=== PATIENT | female | born 1955 ===

== ENCOUNTER 2021-09-12 00:06 | Emergency (ER) | payer OTHER ==
--- OUTSIDE RECORDS SUMMARY | 2021-09-12 00:09 | XMS REPORT | Continuity of Care Document ---
:1955 Author Organization [facility] t Address [address] [place] [address] [address] [place] [address] Care Team Providers Name Role Phone АННА Attending Clinician Unavailable Kaushik CURRAN Attending Clinician Miah MORENO Attending Clinician Payers Payer Name Policy Type Policy Number Effective Date Expiration Date S delmi [id number] 2017 IN-AREA POS - BCBS 00:00:00 MEDICARE PART A \T\ [id number] 2018 B - MEDICARE 00:00:00 CHOICE/CHOICE [id number] 2015 PLUS/OPTIONS PPO - 00:00:00 [facility] Problems Condition Condition Condition Status Onset Resolution Last Treating Co mments Source Name Details Category Date Date Treatment Clinician Date Hypertensi Hypertensi Disease Active [facility] on on 08-10 College 00:00: of 00 Medicin e 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 Social History Social Habit Start Date Stop Date Quantity Comments Source Alcohol [facility] llege of Medicine Cigarettes smoked 2019-04-11 2019-04-11 [facility] (pack per 00:00:00 00:00:00 Medicin e day) - Reported Smoking Status Start Date Stop Date Source Current every day smoker 2019-04-11 00:00:00 [facility] Medications Ordered Filled Start Stop Current Ordering Indication Dosage Frequency Signature Comments Components Source Medication Medication Date Date Medication? Clinician (SIG) Name Name benazepril- 2018-06 Yes 1{tbl} Take 1 Tab Osvaldo hydrochlort 0-18 by mouth [place] hiazide 16:38: daily. of (LOTENSIN 44 Medicin HCT) e 10-12.5 MG per tablet sertraline 2018-06 Yes 50mg Take 50 mg [facility] (ZOLOFT) 50 0-18 by mouth [facility] MG tablet 16:38: daily. of 44 Medicin e busPIRone 2018-06 Yes 15mg Take 15 mg [facility] (BUSPAR) 15 0-18 by mouth 3 Co llege MG tablet 16:38: times of 44 daily. Medicin e omeprazole 2018-06 Yes 20mg Take 20 mg [facility] (PRILOSEC) 0-18 by mouth Colle ge 20 MG 16:38: daily. of capsule 44 Medicin e Potassium 2018-06 Yes Take by [facility] 99 MG TABS 0-18 mouth. [place] 16:38: of 44 Medicin e aspirin 81 2018-06 Yes 81mg Take 81 mg [facility] MG tablet 0-18 by mouth Colleg e 16:38: daily. of 44 Medicin e Niacin CR 2018-06 Yes Take by [facility] 1000 MG 0-18 mouth. [place] TBCR 16:38: of 44 Medicin e Multiple 2018-06 Yes Take by [facility] Vitamins-Mi 0-18 [facility]. [facility] 16:38: of (MULTIVITAM 44 Medicin IN ADULT) e TABS benazepril- Yes 1{tbl} Take 1 Tab [facility] hydrochlort 9-27 by mouth [place] hiazide 14:00: daily. of (LOTENSIN 46 Medicin HCT) e 10-12.5 MG per tablet sertraline Yes 50mg Take 50 mg [facility] (ZOLOFT) 50 9-27 by mouth [place] [facility] MG tablet 14:00: daily. of 46 Medicin e busPIRone Yes 15mg Take 15 mg [facility] (BUSPAR) 15 9-27 by mouth 3 Co llege MG tablet 14:00: times of 46 daily. Medicin e omeprazole Yes 20mg Take 20 mg [facility] (PRILOSEC) 9-27 by mouth [facility] 20 MG 14:00: daily. of capsule 46 Medicin e Atorvastati 2018- No Take by Neo sykes n Calcium 03-21 mouth. College (LIPITOR 14:00: 00:00 of OR) 04 :00 Medicin e PREVIDENT Yes USE [facility] 5000 02-26 DIRECTED College BOOSTER 00:00: ONCE D - of PLUS 1.1 % 00 BID Medicin PSTE e PREVIDENT Yes USE [facility] 5000 02-26 DIRECTED College BOOSTER 00:00: ONCE D - of PLUS 1.1 % 00 BID Medicin PSTE e lisinopril Yes TK 1 T PO [facility] (PRINIVIL, 02-25 QD [place] ZESTRIL) 10 00:00: of MG tablet 00 Medicin e lisinopril Yes TK 1 T PO [facility] (PRINIVIL, 02-25 QD [place] ZESTRIL) 10 00:00: of MG tablet 00 Medicin e Procedures This patient has no known procedures. Plan of Care Planned Activity Planned Date Details Comments Source Future Scheduled COLON CANCER [facility] Test SCREENING: of Medicine COLONOSCOPY [code = COLON CANCER SCREENING: COLONOSCOPY] Future Scheduled MAMMOGRAM ANNUAL [facility] Test [code = MAMMOGRAM of Medicin e ANNUAL] Future Scheduled MEDICARE AWV [code = [facility] Test MEDICARE AWV] of Medicine Future Scheduled TETANUS SHOT (ADULT) [facility]ermyn mazin [place] Test [code = TETANUS SHOT of Medi cine (ADULT)] Future Scheduled HEPATITIS C SCREENING [facility] Test [code = HEPATITIS C of Medic ine SCREENING] Future Scheduled FALL SCREEN [code = [facility] or [place] Test FALL SCREEN] of Medicine Future Scheduled OSTEOPOROSIS [facility] Test SCREENING [code = of Medicin e OSTEOPOROSIS SCREENING] Future Scheduled PNEUMOVAX >=65 [facility] Co llege Test (PPSV23) [code = of Medicine PNEUMOVAX >=65 (PPSV23)] Future Scheduled PREVNAR >= 65 (PCV13) [facility] College Test [code = PREVNAR >= 65 of Med icine (PCV13)] Future Scheduled FLU VACCINE > 6 [facility] C ollege Test MONTHS [code = FLU of Medici ne VACCINE > 6 MONTHS] Future Scheduled FL DESTRUCTION BENIGN Ordered: [facility] Test LESIONS UP TO 04/11/2019 of Medicine 14(45804) [code = 83407] Future Scheduled COLON CANCER [facility] Test SCREENING: of Medicine COLONOSCOPY [code = COLON CANCER SCREENING: COLONOSCOPY] Future Scheduled MAMMOGRAM ANNUAL [facility] Test [code = MAMMOGRAM of Medicin e ANNUAL] Future Scheduled MEDICARE AWV [code = [facility] maz[facility] [place] Test MEDICARE AWV] of Medicine Future Scheduled TETANUS SHOT (ADULT) [facility] mazin [place] Test [code = TETANUS SHOT of Medi cine (ADULT)] Future Scheduled HEPATITIS C SCREENING [facility] Test [code = HEPATITIS C of Medic ine SCREENING] Future Scheduled FALL SCREEN [code = [facility] [place] Test FALL SCREEN] of Medicine Future Scheduled OSTEOPOROSIS [facility] Test SCREENING [code = of Medicin e OSTEOPOROSIS SCREENING] Future Scheduled PNEUMOVAX >=65 [facility] Co llege Test (PPSV23) [code = of Medicine PNEUMOVAX >=65 (PPSV23)] Future Scheduled PREVNAR >= 65 (PCV13) [facility] Test [code = PREVNAR >= 65 of Med icine (PCV13)] Future Scheduled FLU VACCINE > 6 [facility] C ollege Test MONTHS [code = FLU of Medici ne VACCINE > 6 MONTHS] Encounters Start End Encounter Admission Attending Care Care Encounter Source Date/Time Date/Time Type Type Clinicians Facility Department ID 2021-09-02 2021-09-02 Outpatient IGNACIO JJ [facility] [id number] [facility] 15:04:06 15:04:06 GUILLE felder of Medicin e 2019-04-11 2019-04-11 Office Emperatriz Faulkner [id number] [facility] 10:52:17 11:56:54 Visit AMBULATOR [id number] College Y [id number] of [id number] Medi roney 300 e 2019-03-21 2019-03-21 Office IGNACIO Dooley [id number] [facility] 08:51:08 09:42:19 Visit Ella AMBULATOR [id number] College Y [id number] of [id number] Medi roney 300 e Results This patient has no known results.
[2021-09-12] MEDS ORDERED: ONDANSETRON 4 MG/2 ML VIAL ONE (01:14)
[2021-09-12] MEDS ORDERED: NA CHLORIDE 0.9% 1,000 ML ONE (01:14)
[2021-09-12 01:44] LABS: Absolute Lymphocytes (CBC) 1.4 K/uL (0.7-4.9); Hematocrit 44.3 % (36.0-45.0); MPV 9.4 fL (7.6-11.3); RBC Red Blood Cell Count 4.61 M/uL (3.86-4.86)
[2021-09-12 01:57] LABS: Albumin 3.9 g/dL (3.4-5.0); Bilirubin Total 0.4 mg/dL (0.2-1.0); Potassium 4.2 mmol/L (3.5-5.1); Protein, Total 7.8 g/dL (6.4-8.2)
[2021-09-12 03:13] LABS: Urine Blood Negative (Negative); Urine Glucose Negative (Negative); Urine Protein 1+ (Negative); Urine Specific Gravity 1.025 (1.005-1.030); Urine pH 5.5 (5.0-7.0)
--- NOTE | 2021-09-12 03:56 | ER ---
Nurse's Notes [facility] Name: Kathy Gonzalez Age: 66 yrs Sex: Female : 1955 Arrival Date: 09/12/2021 Time: 00:13 Bed 8 Private MD: Diagnosis: Abdominal pain, Generalized;Nausea with vomiting, unspecified;Diarrhea, unspecified Presentation: 09/12 01:11 Chief complaint: Patient states: "I am having abdominal pain" pt also N/V/D. as6 Coronavirus screen: At this time, the client does not indicate any symptoms associated with coronavirus-19. Ebola Screen: No symptoms or risks identified at this time. Initial Sepsis Screen: Does the patient meet any 2 criteria? No. Patient's initial sepsis screen is negative. Does the patient have a suspected source of infection? No. Patient's initial sepsis screen is negative. Risk Assessment: Do you want to hurt yourself or someone else? Patient reports no desire to harm self or others. Onset of symptoms was September 11, 2021 at 18:00. 01:11 Method Of Arrival: Ambulatory as6 01:11 Acuity: MARIAN 3 as6 Historical: - Allergies: 01:15 No Known Allergies; as6 - Home Meds: 01:15 omeprazole 20 mg Oral cpDR 1 cap once daily [Active]; sertraline 100 mg oral tab 1 tab as6 once daily [Active]; BuSpar 15 mg Oral tab 1 tab daily [Active]; lisinopril 5 mg Oral tab 1 tab once daily [Active]; atorvastatin 20 mg oral tab 1 tab once daily [Active]; - PMHx: 01:15 Hypertensive disorder; Hypercholesterolemia; Depressive disorder; as6 - PSHx: 01:15 Cholecystectomy; Splenectomy; as6 - Immunization history:: Client reports having NOT received the Covid vaccine. - Social history:: Smoking status: Patient reports the use of cigarette tobacco products, smokes one pack cigarettes per day. Screenin:20 Abuse screen: Denies threats or abuse. Denies injuries from another. Nutritional as6 screening: No deficits noted. Tuberculosis screening: No symptoms or risk factors identified. Fall Risk None identified. Assessment: 01:18 General: Appears in no apparent distress. uncomfortable, Behavior is calm, cooperative. as6 Pain: Complains of pain in epigastric area and left upper quadrant and right upper quadrant Quality of pain is described as sharp, tender. Neuro: Level of Consciousness is awake, alert, obeys commands, Oriented to person, place, time, situation. Cardiovascular: Capillary refill < 3 seconds Patient's skin is warm and dry. Respiratory: Airway is patent Trachea midline Respiratory effort is even, unlabored, Respiratory pattern is regular, symmetrical. GI: Abdomen is flat, Reports upper abdominal pain, diarrhea, nausea, vomiting. 01:32 GI: Bowel sounds present X 4 quads. as6 03:03 Reassessment: Patient and/or family updated on plan of care and expected duration. Pain as6 level reassessed. Patient is alert, oriented x 3, equal unlabored respirations, skin warm/dry/pink. Patient states feeling better. Patient states symptoms have improved. Pain: Pain currently is 0 out of 10 on a pain scale. Quality of pain is described as. GI: Patient currently denies nausea. 03:51 General: pt tolerated fluids well, pt denies pain or nausea. as6 Vital Signs: 01:11 BP 141 / 71; Pulse 95; Resp 18 S; Temp 98.1(O); Pulse Ox 94% on R/A; Weight 98.88 kg as6 (R); Height 5 ft. 4 in. (162.56 cm) (R); Pain 5/10; 02:00 BP 116 / 59; Pulse 67; Resp 18 S; Pulse Ox 90% on R/A; as6 03:02 BP 133 / 75; Pulse 76; Resp 16 S; Pulse Ox 92% on R/A; Pain 0/10; as6 03:50 BP 104 / 57; Pulse 65; Resp 18 S; Pulse Ox 93% on R/A; as6 01:11 Body Mass Index 37.42 (98.88 kg, 162.56 cm) as6 ED Course: 00:13 Patient arrived in ED. es 00:17 Dipak Gonzalez DO is Attending Physician. ms3 01:05 Hernán Olea, SID is Primary Nurse. as6 01:15 Triage completed. as6 01:18 Arm band placed on. as6 01:20 Bed in low position. Call light in reach. Side rails up X 1. Adult w/ patient. Pulse ox as6 on. NIBP on. Warm blanket given. 01:25 Inserted saline lock: 20 gauge in right antecubital area, using aseptic technique. as6 Blood collected. 01:29 CBC with Diff Sent. as6 01:29 CMP Sent. as6 01:29 Lipase Sent. as6 02:30 CT Abd/Pelvis - IV Contrast Only In Process Unspecified. EDMS 03:14 Urine Microscopic Only Sent. as6 03:27 PO fluids given. as6 04:14 No provider procedures requiring assistance completed. IV discontinued, intact, as6 bleeding controlled, No redness/swelling at site. Pressure dressing applied. Administered Medications: 01:29 Drug: NS 0.9% 1000 ml Route: IV; Rate: 1 bolus; Site: right antecubital; as6 04:02 Follow up: Response: No adverse reaction; IV Status: Completed infusion; IV Intake: as6 1000ml :29 Drug: Zofran (Ondansetron) 4 mg Route: IVP; Site: right antecubital; as6 04:03 Follow up: Response: No adverse reaction as6 Intake: 04:02 IV: 1000ml; Total: 1000ml. as6 Outcome: 03:55 Discharge ordered by . ms3 04:14 Discharged to home ambulatory, with family. as6 04:14 Condition: stable 04:14 Discharge instructions given to patient, Instructed on discharge instructions, follow up and referral plans. medication usage, Demonstrated understanding of instructions, follow-up care, medications, Prescriptions given X 1. 04:15 Patient left the ED. as6 Signatures: Dispatcher [employer] Brittney Reyes Marcus, DO DO ms3 Hernán Olea, RN RN as6
--- NOTE | 2021-09-12 03:56 | EDPHYS ---
Physician Documentation [facility] Name: Kathy Gonzalez Age: 66 yrs Sex: Female : 1955 Arrival Date: 09/12/2021 Time: 00:13 Bed 8 Private MD: ED Physician Dipak Gonzalez HPI: 09/12 00:30 This 66 yrs old Female presents to ER via Unassigned with complaints of Vomiting, ms3 Abdominal Pain. 00:30 The patient presents to the emergency department with nausea, that is moderate, ms3 vomiting, 6 times since the onset of symptoms, described as bilious, diarrhea, 3 times since the onset of symptoms, abdominal pain, of the right upper quadrant and left upper quadrant, described as twisting, and does not radiate. Onset: The symptoms/episode began/occurred acutely, 6 hour(s) ago. Possible causes: unknown. The symptoms are aggravated by nothing. The symptoms are alleviated by nothing. Associated signs and symptoms: Pertinent positives: abdominal pain, diarrhea, vomiting. 66-year-old female with past medical history of hypertension and hyperlipidemia presents for upper abdominal pain that began at 6 PM. Patient notes she worked outside in her yard today without eating or drinking. Patient states at 6 PM she developed abdominal pain that fluctuates between a 5 and an 8/10 and feels like twisting. Patient denies alleviating or inciting factors. Patient endorses nausea, vomiting x6 timesbile, diarrhea x3, chills. Patient denies fevers.. Historical: - Allergies: 01:15 No Known Allergies; as6 - Home Meds: 01:15 omeprazole 20 mg Oral cpDR 1 cap once daily [Active]; sertraline 100 mg oral tab 1 tab as6 once daily [Active]; BuSpar 15 mg Oral tab 1 tab daily [Active]; lisinopril 5 mg Oral tab 1 tab once daily [Active]; atorvastatin 20 mg oral tab 1 tab once daily [Active]; - PMHx: 01:15 Hypertensive disorder; Hypercholesterolemia; Depressive disorder; as6 - PSHx: 01:15 Cholecystectomy; Splenectomy; as6 - Immunization history:: Client reports having NOT received the Covid vaccine. - Social history:: Smoking status: Patient reports the use of cigarette tobacco products, smokes one pack cigarettes per day. ROS: 00:30 Constitutional: Negative for fever, and chills. Eyes: Negative for injury, pain, ms3 redness, and discharge, ENT: Negative for injury, pain, and discharge, Neck: Negative for injury, pain, and swelling, Cardiovascular: Negative for chest pain, and palpitations. Respiratory: Negative for shortness of breath, cough, wheezing, and pleuritic chest pain, MS/Extremity: Negative for injury and deformity, Skin: Negative for injury, rash, and discoloration. 00:30 Abdomen/GI: Positive for abdominal pain, nausea, vomiting, and diarrhea. 00:30 All other systems are negative. Exam: 00:30 Constitutional: This is a well developed, well nourished patient who is awake, alert, ms3 and in no acute distress. Head/Face: Normocephalic, atraumatic. Neck: Trachea midline, no cervical lymphadenopathy. Supple, full range of motion without nuchal rigidity, or vertebral point tenderness. No Meningismus. Chest/axilla: Normal chest wall appearance and motion. Nontender with no deformity. Cardiovascular: Regular rate and rhythm with a normal S1 and S2. No gallops, murmurs, or rubs. Normal PMI, no JVD. No pulse deficits. Respiratory: Lungs have equal breath sounds bilaterally, clear to auscultation and percussion. No rales, rhonchi or wheezes noted. No increased work of breathing, no retractions or nasal flaring. Skin: Warm, dry with normal turgor. Normal color with no rashes, no lesions, and no evidence of cellulitis. Psych: Awake, alert, with orientation to person, place and time. Behavior, mood, and affect are within normal limits. 00:30 Abdomen/GI: Inspection: abdomen appears normal, Bowel sounds: normal, Palpation: moderate abdominal tenderness, in the epigastric area. Vital Signs: 01:11 BP 141 / 71; Pulse 95; Resp 18 S; Temp 98.1(O); Pulse Ox 94% on R/A; Weight 98.88 kg as6 (R); Height 5 ft. 4 in. (162.56 cm) (R); Pain 5/10; 02:00 BP 116 / 59; Pulse 67; Resp 18 S; Pulse Ox 90% on R/A; as6 03:02 BP 133 / 75; Pulse 76; Resp 16 S; Pulse Ox 92% on R/A; Pain 0/10; as6 03:50 BP 104 / 57; Pulse 65; Resp 18 S; Pulse Ox 93% on R/A; as6 01:11 Body Mass Index 37.42 (98.88 kg, 162.56 cm) as6 MDM: 00:30 Differential diagnosis: Nonspecific abd pain, gastritis, pancreatitis. ms3 01:11 Patient medically screened. ms3 03:56 Data reviewed: vital signs, nurses notes, lab test result(s), radiologic studies. Data ms3 interpreted:. Counseling: I had a detailed discussion with the patient and/or guardian regarding: the historical points, exam findings, and any diagnostic results supporting the discharge/admit diagnosis, lab results, radiology results, the need for outpatient follow up, to return to the emergency department if symptoms worsen or persist or if there are any questions or concerns that arise at home. ED course: Discussed labs, CT finding, physical exam findings with patient. Patient to follow-up with her primary care physician within 1 to 2 days for reevaluation. Patient understands and agrees with plan. All questions were answered. Return precautions discussed include worsening symptoms, or any other concerns. On reevaluation patient is tolerating p.o., symptoms improved, between emergency department, nontoxic-appearing, abdominal exam benign.. 09/12 00:30 Order name: CBC with Diff; Complete Time: 03:02 3 09/12 00:30 Order name: CMP; Complete Time: 03: ms3 09/12 00:30 Order name: Lipase; Complete Time: 03:02 3 09/12 00:30 Order name: Urine Microscopic Only ms3 09/12 03:13 Order name: Urine Dipstick-Ancillary EDMS 09/12 03:14 Order name: Urine Dipstick-Ancillary; Complete Time: 03:32 EDMS 09/12 00:30 Order name: CT Abd/Pelvis - IV Contrast Only ms3 09/12 00:30 Order name: IV Saline Lock; Complete Time: :29 ms3 09/12 00:30 Order name: Labs collected and sent; Complete Time: 01:29 ms3 09/12 00:30 Order name: Urine Dipstick-Ancillary (obtain specimen); Complete Time: 03:14 ms3 09/12 03:17 Order name: PO challenge; Complete Time: 03:27 ms3 Administered Medications: 01:29 Drug: NS 0.9% 1000 ml Route: IV; Rate: 1 bolus; Site: right antecubital; as6 04:02 Follow up: Response: No adverse reaction; IV Status: Completed infusion; IV Intake: as6 1000ml 01:29 Drug: Zofran (Ondansetron) 4 mg Route: IVP; Site: right antecubital; as6 04:03 Follow up: Response: No adverse reaction as6 Disposition Summary: 09/12/21 03:55 Discharge Ordered Location: Home ms3 Condition: Stable ms3 Diagnosis - Abdominal pain, Generalized ms3 - Nausea with vomiting, unspecified ms3 - Diarrhea, unspecified ms3 Followup: ms3 - With: Private Physician - When: 1 - 2 days - Reason: Re-evaluation by your physician Discharge Instructions: - Discharge Summary Sheet ms3 - Abdominal Pain, Adult ms3 - Nausea and Vomiting, Adult ms3 Forms: - Medication Reconciliation Form ms3 - Thank You Letter ms3 - Antibiotic Education ms3 - Prescription Opioid Use ms3 Prescriptions: - Zofran 4 mg Oral Tablet - take 1 tablet by ORAL route every 12 hours As needed; 20 tablet; Refills: 0, ms3 Product Selection Permitted Signatures: Dispatcher [employer] Dipak Horne DO DO ms3 Hernán Olea, RN RN as6
[2021-09-12 04:09] LABS: Urine Mucus 1+ /HPF (NONE SEEN)
[2021-09-12 04:10] LABS: Urine Bacteria <20 /HPF (<20); Urine RBC <5 /HPF (NONE SEEN)
[2021-09-12 05:54] VITALS: TEMP 98.1
[2021-09-12 05:58] VITALS: BP 104/57; O2SAT 93
--- NOTE | 2021-09-12 13:45 | RAD REPORT ---
EXAM DESCRIPTION: CT - Abdomen Pelvis W Contrast - 09/12/2021 4:35 am CLINICAL HISTORY: 66 years, Female, ABD PAIN COMPARISON: None. TECHNIQUE: Contrast-enhanced images of the abdomen and pelvis were performed utilizing 5 mm slice th ickness at 5 mm interval reconstruction from the lung bases to the ischial tuberosities after the adm inistration IV contrast. In addition multiplanar reformats in the coronal and sagittal plane were obtained and reviewed. This exam was performed according to our departmental dose-optimization protocol, which includes auto mated exposure control, adjustment of the mA and/or kV according to patient size and/or use of iterat loreto reconstruction technique. FINDINGS: The lung bases demonstrate to be clear. There is a small hiatal hernia. The liver, pancreas and adrenal glands demonstrate to be unremarkable, no focal lesions are noted. The gallbladder was not visualized corresponding to previous cholecystectomy. The spleen is atrophic/or perhaps suggesting previous splenectomy and splenosis along axial image 19- 26. The kidneys demonstrate normal uptake of contrast media. No evidence for nephrolithiasis and/or hydro nephrosis. There is a lower pole right renal cyst measuring 3.5 x 3.1 cm on image 37/89. Grossly the unopacified stomach and large bowel demonstrate to be within normal limits. There is no evidence for free air. Mild bowel dilatation of the small bowel with mucosal thickening mid line low er abdomen/upper pelvis on image 55/89. The appendix was not visualized but no significant inflamma tory changes are seen within the right lower quadrant. There is a anterior abdominal wall bases/hernia containing large bowel and portions of small bowel. N o evidence for incarceration. The urinary bladder demonstrate to be unremarkable. The uterus is unremarkable. There are no adnexa l masses. The aorta demonstrate minimal atheromatous plaque formation. There is no retroperitonea l lymphadenopathy. There is no evidence for ascites/or significant abnormal fluid collections. The bone windows demonstrate mild diffuse bony osteopenia. Degenerative disc disease at L4-S1. Small superior plate compression deformity at L2. IMPRESSION: Mild bowel dilatation of the small bowel with mucosal thickening of the mid line lower a bdomen/upper pelvis. Differential diagnosis includes a ileus versus enteritis. Anterior abdominal wall dehiscence/hernia containing large bowel and portions of small bowel. No evid ence for incarceration. Small hiatal hernia. Status post cholecystectomy. Small superior plate compression deformity at L2. Electronically signed by: Viet Lozoya MD 09/12/2021 3:07 AM CDT Due to temporary technical issues with the PACS/Fluency reporting system, reports are being signed by the in house radiologist without review as a courtesy to ensure prompt reporting. The interpreting r adiologist is fully responsible for the content of the report.
== END 2021-09-12 04:15 | disposition home or self-care (01) ==
LOC: ER 00:06
DX: R10.84 Generalized abdominal pain (principal); R11.2 Nausea with vomiting, unspecified; R19.7 Diarrhea, unspecified; I10 Essential (primary) hypertension; E78.00 Pure hypercholesterolemia, unspecified; F32.A Depression, unspecified; F17.210 Nicotine dependence, cigarettes, uncomplicated
CPT/HCPCS: 96361; 85025; 36415; 83690; 80053; 74177; 96374; 99284; Q9967; J7030; J2405; 81003; 81015